=== PATIENT | male | born 1995 | race African-American/Black ===

== ENCOUNTER 2017-03-07 14:21 | Emergency (ER) | payer OTHER ==
[2017-03-07] MEDS ORDERED: HYDROCODONE/ACETAMINOPHEN 5-325 MG TABLET PO ONE (16:40)
[2017-03-07] MEDS ORDERED: DIPH/PERTUSS(ACELL)/TETANUS VAC/PF 0.5 ML SYR (>=10YO) IM ONE (16:40)
[2017-03-07] MEDS ORDERED: LIDOCAINE 1%/EPINEPHRINE INJ 20 ML VIAL INJ ONE (16:41)
--- NOTE | 2017-03-07 16:43 | ER Document Report ---
HPI - HPI Patient complains to provider of: knee Laceration Onset: Just prior to arrival Onset/Duration: Sudden Quality of pain: Achy Pain Level: 5 Context: Pt States that he was jumping on a trampoline, did a back flip and hit his left knee on the metal frame. Patient with laceration to left knee. Patient ambulated into the department. Associated Symptoms: Other - knee laceration Exacerbated by: Movement Relieved by: Denies Similar symptoms previously: No Recently seen / treated by doctor: No - ROS ROS below otherwise negative: Yes Systems Reviewed and Negative: Yes All other systems reviewed and negative - CONSTITUTIONAL Constitutional: DENIES: Fever - NEURO Neurology: DENIES: Weakness - GASTROINTESTINAL Gastrointestinal: DENIES: Nausea, Patient vomiting - MUSCULOSKELETAL Musculoskeletal: REPORTS: Extremity pain - left knee injury. DENIES: Swelling - DERM Skin Color: Normal Skin Problems: Laceration Past Medical History - General Information source: Patient - Social History Smoking Status: Never Smoker Frequency of alcohol use: None Drug Abuse: None Occupation: none Lives with: Family Family History: None Patient has suicidal ideation: No Patient has homicidal ideation: No - Medical History Medical History: Negative Renal/ Medical History: Denies: Hx Peritoneal Dialysis Surgical Hx: Negative - Immunizations Hx Diphtheria, Pertussis, Tetanus Vaccination: No Vertical Provider Document - CONSTITUTIONAL Agree With Documented VS: Yes Exam Limitations: No Limitations General Appearance: WD/WN, No Apparent Distress - INFECTION CONTROL TRAVEL OUTSIDE OF THE [place] IN LAST 30 DAYS: No - HEENT HEENT: Atraumatic, Normocephalic - NECK Neck: Normal Inspection - RESPIRATORY Respiratory: Breath Sounds Normal, No Respiratory Distress O2 Sat by Pulse Oximetry: 97 - CARDIOVASCULAR Cardiovascular: Regular Rate, Regular Rhythm Pulses: Normal: Dorsalis pedis - MUSCULOSKELETAL/EXTREMETIES Musculoskeletal/Extremeties: MAEW, Tender - left knee tenderness, inferior compartment, No Edema - NEURO Level of Consciousness: Awake, Alert, Appropriate Motor/Sensory: No Motor Deficit - DERM Integumentary: Warm, Dry, Laceration - irregular lac to inferior compartment of left knee Course - Re-evaluation Re-evalutation: 03/07/17 Dr. Price regarding patient presentation and concern about partial tendon laceration. Dr. Price advises suturing wound closed and having patient follow up with orthopedic doctor as an outpatient for further management. Recommends placing patient in a knee immobilizer splint. 03/07/17 20:51 Mother called and was requesting information about her child's care. After consent was obtained from the patient to discuss his care with his mother, mother was advised of patient injury and need for follow-up with orthopedic doctor. Mother was advised to call the orthopedic office on Thursday and to seek further evaluation for his partial laceration to his left patellar tendon. Mother verbalized understanding and agrees with plan of care. - Vital Signs Vital signs: Temp Pulse Resp BP Pulse Ox 98.6 F 96 H 16 158/78 H 97 03/07/17 14:37 03/07/17 14:37 03/07/17 14:37 03/07/17 14:37 03/07/17 14:37 - Diagnostic Test Radiology reviewed: Image reviewed, Reports reviewed Procedures - Immobilization Left Knee Pre-Proc Neuro Vasc Exam: Normal Immobilizer type: Knee immobilizer Performed by: PCT Post-Proc Neuro Vasc Exam: Normal Alignment checked and good: Yes - Laceration/Wound Repair Left Knee Wound length (cm): 3.5 Wound's Depth, Shape: Irregular Laceration pre-procedure: Betadine prep applied Anesthetic type: 1% Lidocaine w/epi Volume Anesthetic (mLs): 3 Wound explored: Clean, No foreign body removed Wound Repaired With: Sutures Suture Size/Type: 4:0, Prolene Number of Sutures: 9 Layer Closure?: No Post-procedure wound care: Sterile dressing applied, Splint applied Post-procedure NV exam normal: Yes Complications: No Discharge - Discharge Clinical Impression: Elevated blood pressure reading, patellar tendon injury Knee laceration Qualifiers: Encounter type: initial encounter Laterality: left Qualified Code(s): S81.012A - Laceration without foreign body, left knee, initial encounter Condition: Stable Disposition: HOME, SELF-CARE Instructions: Tetanus Immunization Given ([facility]), Prophylactic Antibiotic ([facility]), Laceration Care ([facility]), Oral Narcotic Medication ([facility]), Antibiotic Ointment Protection ([facility]), Tendon Laceration Referral ([facility]), Use of Crutches ([facility]), Knee Immobilizing Splint ([facility]) Additional Instructions: You have a partial laceration injury of your patellar tendon. This will need further evaluation by an orthopedic surgeon. Call the orthopedic doctor's office on Thursday for a follow-up appointment. It is important that you leave the knee immobilizer splint in place and avoid bending your knee to prevent further injury. Suture removal in the next 12-14 days, unless the orthopedic doctor removes the sutures sooner. Return ss needed for any new or worsening symptoms Prescriptions: Cephalexin Monohydrate [Keflex 500 mg Capsule] 500 mg PO Q6H 5 Days Hydrocodone/Acetaminophen [[place] 5-325 Tablet] 1 each PO Q4 PRN #15 tablet PRN Reason: Forms: Elevated Blood Pressure, Return to Work Referrals: [facility] [Provider Group] - 03/09/17
--- NOTE | 2017-03-07 18:40 | RADIOLOGY REPORT (SQ) ---
EXAM DESCRIPTION: KNEE LEFT 4 VIEW COMPLETED DATE/TIME: 03/07/2017 6:19 pm REASON FOR STUDY: fall, hit knee on metal of trampoline COMPARISON: None. NUMBER OF VIEWS: Four views. TECHNIQUE: AP, lateral, and both oblique radiographic images acquired of the left knee. LIMITATIONS: None. FINDINGS: MINERALIZATION: Normal. BONES: No acute fracture or dislocation. No worrisome bone lesions. JOINT: No effusion. SOFT TISSUES: Soft tissue irregularity is seen over the distal patellar tendon/tibial tubercle. The underlying tendon appears to be intact. OTHER: No other significant finding. IMPRESSION: Soft tissue injury over the distal patellar tendon at its insertion on the tibial tuberc le. The tendon attachment appears to be preserved. TECHNICAL DOCUMENTATION: JOB ID: [id number] [employer]- All Rights Reserved
[2017-03-07] MEDS ORDERED: CEPHALEXIN 500 MG CAPSULE PO ONE (20:05)
[2017-03-07 20:35] VITALS: BP 154/96
== END 2017-03-07 20:34 | disposition home or self-care (01) ==
LOC: ER 14:21
PROC: 0HQLXZZ Repair Left Lower Leg Skin, External Approach (ICD-10-PCS; principal; 2017-03-07)
DX: S81.012A Laceration without foreign body, left knee, initial encounter (principal); R03.0 Elevated blood-pressure reading, without diagnosis of hypertension; X58.XXXA Exposure to other specified factors, initial encounter
CPT/HCPCS: 99283; 90471; 73562; 90715; 12002; L1830; J3490